=== PATIENT | female | born 1980 | race Caucasian/White ===

== ENCOUNTER 2023-07-05 19:46 | Emergency (ER) | payer MEDICAID ==
[2023-07-05] MEDS ORDERED: Sodium Chloride 0.9% 10 ML Syringe FLUSH PRN (20:07)
[2023-07-05] MEDS ORDERED: Iopamidol 612 MG/ML 100 ML Bottle IVPUSH ONE (20:07)
[2023-07-05 20:15] LABS: BASOPHILS ABSOLUTE AUTO 0.1 K/mm3 (0.0-0.2); BASOPHILS PERCENT AUTO 0.4 % (0.0-1.0); EOSINOPHILS PERCENT AUTO 0.1 % (0.0-6.0); HEMATOCRIT 36.6 % (37.0-47.0); HEMOGLOBIN 11.6 gm/dl (12.0-16.0); IMMATURE GRAN ABSOLUTE AUTO 0.23 K/mm3 (0.00-0.05); LYMPHOCYTES ABSOLUTE AUTO 1.6 K/mm3 (1.0-4.8); LYMPHOCYTES PERCENT AUTO 7.1 % (24.0-44.0); MEAN CORPUSCULAR HGB CONC 31.7 g/dl (32.0-36.0); MEAN CORPUSCULAR VOLUME 85.3 fl (83.0-99.0); MEAN PLATELET VOLUME 9.7 fl (9.4-12.3); MONOCYTES ABSOLUTE AUTO 1.1 K/mm3 (0.0-0.8); MONOCYTES PERCENT AUTO 4.9 % (0.0-8.0); NEUTROPHILS ABSOLUTE AUTO 19.3 K/mm3 (1.8-7.7); NEUTROPHILS PERCENT AUTO 86.5 % (41.0-71.0); PLATELET COUNT,PLT 338 K/mm3 (150-400); RED BLOOD CELL COUNT 4.29 M/mm3 (4.10-5.30); WHITE BLOOD CELL COUNT,WBC 22.33 K/mm3 (3.9-11.3)
[2023-07-05 20:29] LABS: INR 0.96; PROTHROMBIN TIME 10.3 SECONDS (9.7-12.0)
[2023-07-05 20:31] LABS: PTT,PARTIAL THROMBOPLSTIN TIME 21.7 SECONDS (21.7-31.4)
[2023-07-05 20:42] LABS: A/G RATIO 0.9 (1-2); ALBUMIN 3.2 g/dl (3.4-5.0); BILIRUBIN TOTAL 0.2 mg/dL (0.2-1.0); CALCIUM 8.9 mg/dL (8.5-10.1); EST CRCL DRUG DOSING (CG) 72.72 mL/min; ETHANOL BLOOD MEDICAL 0.03 gm% (0.00); PROTEIN TOTAL,TP 6.8 g/dl (6.4-8.2)
[2023-07-05] MEDS: Morphine 4 MG/ML Syringe IVPUSH ONE ×2 (21:27→22:41)
[2023-07-05] MEDS: Ondansetron 4 MG/2 ML SDV IVPUSH ONE (21:27)
[2023-07-05] MEDS: Sodium Chloride 0.9% 1,000 ML IV SCH (22:31)
[2023-07-05] MEDS: Sodium Chloride 0.9% 1,000 ML ONE (22:31)
== END 2023-07-05 22:49 ==
LOC: JD.ED 19:46
DX: S22.088A Other fracture of T11-T12 vertebra, initial encounter for closed fracture (principal); S32.018A Other fracture of first lumbar vertebra, initial encounter for closed fracture; S27.331A Laceration of lung, unilateral, initial encounter; Z88.6 Allergy status to analgesic agent
CPT/HCPCS: 36415; 70450; 71045; 71260; 72125; 72128; 72131; 72170; 74177; 80053; 80307; 84703; 85025; 85610; 85730; 96374; 96375; 96376; 99285; J2270; J2405; J7030